=== PATIENT | female | born 1950 | race Caucasian/White ===

== ENCOUNTER → 2016-11-12 | Outpatient (CLI) | payer BC, MEDICARE ==
--- NOTE | 2016-11-12 16:42 | BD ---
EXAMINATION TYPE: MG DEXA axial skeleton. DATE OF EXAM: 11/12/2016 3:29 PM COMPARISON: NONE CLINICAL HISTORY: Height: 59.7 IN Weight: 196 LBS FRAX RISK QUESTIONS: Alcohol (3 or more units per day): NO Family History (Parent hip fracture): YES MOTHER Glucocorticoids (More than 3mos): NO (Ex: prednisone, prednisolone, methylprednisolone, dexamethasone, and hydrocortisone). History of Fracture in Adulthood: NO Secondary Osteoporosis: 1. Type 1 Diabetes: NO 2. Hyperthyroidism: NO 3. Menopause before 45: NO 4. Malnutrition: NO 5. Chronic liver disease: NO Rheumatoid Arthritis: NO Current Tobacco Use: NO RISK FACTORS HISTORY OF: Surgery to Spine): YES L-SPINE When: 1990 AND 1992 Active: YES Diet low in dairy products/other sources of calcium: YES Postmenopausal woman: AGE 51 MEDICATIONS: Additional Medications: OMEPRAZOLE, ANTIDEPRESSANT, FLEXERIL, EXAM MEASUREMENTS: Bone mineral densitometry was performed using the [employer] System. PT HAD 2 SURGERIES TO L-SPINE IN 1990 AND 1992 Bone mineral density about the R hip (g/cm2): 0.878 Bone mineral density about the L hip (g/cm2): 0.897 T Score values are as follows: -----R Neck: -1.2 -----L Neck: -1.0 -----R Intertrochanter: -0.4 -----L Intertrochanter: 0.3 Bone mineral density BASELINE IMPRESSION: Osteopenia (T Score between -2.5 and -1 as noted by T score values There is slightly increased risk of fracture and the patient may be considered for treatment. Re-Screen 1-2 years. NOTE: T-SCORE=SD OF THE YOUNG ADULT MEAN.
--- NOTE | 2016-11-13 08:39 | MM ---
Reason for exam: screening (asymptomatic). Baseline mammogram. History: Patient is postmenopausal and is nulliparous. Family history of breast cancer in mother at age 68. Physical Findings: Nurse did not find any significant physical abnormalities on exam. MG 3D Screening Mammo W/Cad Bilateral CC and MLO view(s) were taken. There are scattered fibroglandular densities. There is no discrete abnormality. There is no discrete abnormality. These results were verbally communicated with the patient and result sheet given to the patient on 11/12/16. ASSESSMENT: Benign, BI-RAD 2 RECOMMENDATION: Routine screening mammogram of both breasts in 1 year.
== END ==
LOC: RADMAMWWP 13:38
PROVIDERS: ATTEND Family Medicine
DX: Z12.31 Encounter for screening mammogram for malignant neoplasm of breast (principal); M85.80 Other specified disorders of bone density and structure, unspecified site; N95.1 Menopausal and female climacteric states; Z78.0 Asymptomatic menopausal state
CPT/HCPCS: 77080; 77063; G0202

== ENCOUNTER → 2017-04-15 | Outpatient (CLI) | payer MEDICARE ==
--- NOTE | 2017-04-15 14:30 | US ---
EXAMINATION TYPE: US kidneys/renal and bladder DATE OF EXAM: 04/15/2017 COMPARISON: NONE CLINICAL HISTORY: N18.3 Stage 3 chronic kidney disease. CKD EXAM MEASUREMENTS: Right Kidney: 8.4 x 4.6 x 3.9 cm Left Kidney: 10.9 x 4.6 x 3.6 cm Right Kidney: wnl Left Kidney: wnl Bladder: wnl Bilateral Jets seen: Yes There is no evidence for hydronephrosis at this point in time. No nephrolithiasis is seen. No rita s are identified on images saved. The urinary bladder is anechoic. Bilateral ureteral jets are seen . IMPRESSION: Asymmetric atrophy and cortical thinning of right kidney noted. No hydronephrosis is evident bilatera lly.
== END | disposition home or self-care (01) ==
LOC: RADUSWWP 12:21
PROVIDERS: ATTEND Family Medicine
DX: N18.3 Chronic kidney disease, stage 3 (moderate) (principal); N26.1 Atrophy of kidney (terminal)
CPT/HCPCS: 76770

== ENCOUNTER → 2017-11-16 | Outpatient (CLI) | payer MEDICARE ==
--- NOTE | 2017-11-18 09:07 | MM ---
Reason for exam: screening (asymptomatic). Last mammogram was performed 1 year ago. History: Patient is postmenopausal and is nulliparous. Family history of breast cancer in mother at age 68. Physical Findings: A clinical breast exam by your physician is recommended on an annual basis and results should be correlated with mammographic findings. MG 3D Screening Mammo W/Cad Bilateral CC and MLO view(s) were taken. Prior study comparison: November 12, 2016, bilateral MG 3d screening mammo w/cad. There are scattered fibroglandular densities. There is chronic nodularity bilaterally. No significant changes when compared with prior studies. ASSESSMENT: Negative, BI-RAD 1 RECOMMENDATION: Routine screening mammogram of both breasts in 1 year.
== END | disposition home or self-care (01) ==
LOC: RADMAMWWP 14:08
PROVIDERS: ATTEND Family Medicine
DX: Z12.31 Encounter for screening mammogram for malignant neoplasm of breast (principal); N95.1 Menopausal and female climacteric states; M89.9 Disorder of bone, unspecified; Z80.3 Family history of malignant neoplasm of breast
CPT/HCPCS: 77063; 77067

== ENCOUNTER 2018-10-10 23:51 | Observation (INO) | payer MEDICARE ==
[2018-10-11] MEDS ORDERED: HYDROmorphone 0.5 MG/0.5 ML SYRINGE IVP STA (00:45)
[2018-10-11] MEDS ORDERED: ONDANSETRON 4 MG/2 ML VIAL IVP STA (00:45)
[2018-10-11] MEDS ORDERED: SODIUM CHLORIDE 0.9% 500 ML 500 ML IV ONE (00:46)
[2018-10-11 01:00] LABS: Basophils % (A) 0 %; Eosinophils # (A) 0.1 k/uL (0-0.7); Eosinophils % (A) 1 %; HCT 43.8 % (34.0-46.0); HGB 13.3 gm/dL (11.4-16.0); Hypochromasia Marked; Lymphocytes # (A) 1.3 k/uL (1.0-4.8); Lymphocytes % (A) 9 %; MCH 25.3 pg (25.0-35.0); MCHC 30.4 g/dL (31.0-37.0); MCV 83.1 fL (80.0-100.0); Mean Platelet Volume 7.4; Monocytes # (A) 0.4 k/uL (0-1.0); Monocytes % (A) 2 %; Neutrophils # (A) 13.4 k/uL (1.3-7.7); Neutrophils % (A) 88 %; Platelet Count 351 k/uL (150-450); RBC 5.27 m/uL (3.80-5.40); RDW 14.9 % (11.5-15.5); WBC 15.2 k/uL (3.8-10.6)
[2018-10-11 01:10] LABS: Albumin 4.1 g/dL (3.5-5.0); Calcium 10.9 mg/dL (8.4-10.2); Potassium 4.4 mmol/L (3.5-5.1); Total Bilirubin 0.8 mg/dL (0.2-1.3); Total Protein 7.7 g/dL (6.3-8.2)
--- NOTE | 2018-10-11 02:18 | CT ---
EXAM: CT Chest With Intravenous Contrast CLINICAL HISTORY: ITS.REASON CT Reason: pain TECHNIQUE: Axial computed tomography images of the chest with intravenous contrast. CTDI is 20 mGy and DLP is 1078 mGy-cm. This CT exam was performed using one or more of the following dose reduction techniques: automated exposure control, adjustment of the mA and/or kV according to patient size, and/or use of iterative reconstruction technique. COMPARISON: No relevant prior studies available. FINDINGS: Lungs: No mass. No consolidation. Pleural space: No pneumothorax. No significant effusion. Heart: Normal heart size without pericardial effusion. Bones/joints: No acute fracture. Soft tissues: Unremarkable. Vasculature: Unremarkable. No thoracic aortic aneurysm. Lymph nodes: No enlarged lymph nodes. IMPRESSION: No acute intrathoracic findings. EXAM: CT Abdomen and Pelvis With Intravenous Contrast CLINICAL HISTORY: ITS.REASON CT Reason: pain TECHNIQUE: Axial computed tomography images of the abdomen and pelvis with intravenous contrast. CTDI is 20 mGy and DLP is 1078 mGy-cm. This CT exam was performed using one or more of the following dose reduction techniques: automated exposure control, adjustment of the mA and/or kV according to patient size, and/or use of iterative reconstruction technique. COMPARISON: No relevant prior studies available. FINDINGS: Lung bases: No mass. No consolidation. ABDOMEN: Liver: Unremarkable. Gallbladder and bile ducts: Unremarkable. Pancreas: Unremarkable. Spleen: Unremarkable. Adrenals: Unremarkable. Kidneys and ureters: No hydronephrosis. 5.4 cm left renal cyst. Stomach and bowel: Mildly thickened distal ileum. Colonic diverticulosis. Fluid-filled colon. PELVIS: Appendix: No evidence of appendicitis. Bladder: Unremarkable. Reproductive: Unremarkable. ABDOMEN and PELVIS: Intraperitoneal space: Trace fluid around the right lower quadrant. Bones/joints: No acute fractures. Degenerative changes. Soft tissues: Supraumbilical hernia containing a short segment of the transverse colon. Umbilical hernia and periumbilical hernia containing loops of small bowel. The right side measures up to 5.3 cm and the left sac measures up to 13 cm. Vasculature: No abdominal aortic aneurysm. Lymph nodes: No enlarged lymph nodes. IMPRESSION: 1. 3 abdominal hernias are seen containing transverse colon in the supraumbilical hernia and small bowel in the umbilical/periumbilical hernias which is large on the left. No evidence of bowel obstruction. 2. Mildly thickened distal ileum with trace free fluid and subtle stranding may represent infectious/inflammatory enteritis/ileitis. 3. Colonic diverticulosis.
[2018-10-11 02:36] LABS: Magnesium 1.8 mg/dL (1.6-2.3); Phosphorus 1.9 mg/dL (2.5-4.5)
[2018-10-11] MEDS ORDERED: SODIUM CHLORIDE 0.9% 1,000 ML IV STA (02:55)
--- NOTE | 2018-10-11 04:20 | ED ---
General Adult HPI - General Source: patient, EMS, RN notes reviewed, old records reviewed Mode of arrival: EMS Limitations: no limitations <Trino Conner - Last Filed: 10/11/18 05:27> <Cheryl Lam - Last Filed: 10/13/18 00:27> - General Chief complaint: Abdominal Pain Stated complaint: abd pain Time Seen by Provider: 10/11/18 00:56 - History of Present Illness Initial comments: 68-year-old female patient past medical history of bowel perforation after, multiple colorectal surgeries, ventral hernia presents to ED with 1 day of abdominal pain, nausea and vomiting. Patient states that her pain is located in her left lower quadrant region. Patient denies any other complaints. Patient denies any chest pain shortness of breath, dysuria. Systemic: Pt denies fatigue, myalgia, fever/chills, rash. Pt denies weakness, night sweats, weight loss. Neuro: Pt denies headache, visual disturbances, syncope or pre-syncope. HEENT: Pt denies ocular discharge or irritation, otalgia, rhinorrhea, pharyngitis or notable lymphadenopathy. Cardiopulmonary: Pt denies chest pain, SOB, heart palpitations, dyspnea on exertion. Abdominal/GI: Pt denies n/v/d. : Pt denies dysuria, burning w/ urination, frequency/urgency. Denies new onset urinary or bowel incontinence. MSK: Pt denies myalgia, loss of strength or function in extremities. Neuro: Pt denies new onset weakness, paresthesias. (Trino Conner) - Related Data Allergies Allergy/AdvReac Type Severity Reaction Status Date / Time morphine Allergy Unknown Verified 10/11/18 08:33 Review of Systems ROS Other: All systems not noted in ROS Statement are negative. <Trino Conner - Last Filed: 10/11/18 05:27> ROS Other: All systems not noted in ROS Statement are negative. <Cheryl Lam - Last Filed: 10/13/18 00:27> ROS Statement: Those systems with pertinent positive or pertinent negative responses have been documented in the HPI. Past Medical History Past Medical History: Renal Disease Additional Past Medical History / Comment(s): bowel perferation. History of Any Multi-Drug Resistant Organisms: None Reported Past Surgical History: Back Surgery, Cholecystectomy Past Psychological History: No Psychological Hx Reported Smoking Status: Former smoker Past Alcohol Use History: None Reported Past Drug Use History: None Reported <Trino Conner - Last Filed: 10/11/18 05:27> General Exam Limitations: no limitations <Trino Conner - Last Filed: 10/11/18 05:27> - General Exam Comments Initial Comments: Constitutional: NAD, AOX3, Pt has pleasant affect. HEENT: NC/AT, trachea midline, neck supple, no lymphadenopathy. Posterior pharynx non erythematous, without exudates. External ears appear normal, without discharge. Mucous membranes moist. Eyes PERRLA, EOM intact. There is no scleral icterus. No pallor noted. Cardiopulmonary: RRR, no murmurs, rubs or gallops, no JVD noted. Lungs CTAB in anterior and posterior farmer. No peripheral edema. Abdominal exam: Abdomen soft and non-distended. Abdomen non-tender to palpation in all 4 quadrants. Bowel sounds active in LLQ. No hepatosplenomegaly. No ecchymosis. 3 ventral hernias noted, all reducible, nontender. Neuro: CN II-XII grossly intact. No nuchal rigidity. MSK: No posterior calf tenderness bilaterally, homans sign negative bilaterally. Posterior tibialis and radial pulse +2 bilaterally. Sensation intact in upper and lower extremities. Full active ROM in upper and lower extremities, 5/5 stregnth. (Trino Conner) Course Vital Signs 10/11/18 10/11/18 10/11/18 00:00 01:15 03:12 Temperature 98.0 F 98.3 F Pulse Rate 65 90 70 Respiratory 22 18 16 Rate Blood Pressure 183/93 135/82 111/52 O2 Sat by Pulse 100 96 97 Oximetry 10/11/18 05:52 Temperature 98.2 F Pulse Rate 79 Respiratory 16 Rate Blood Pressure 122/65 O2 Sat by Pulse 98 Oximetry Medical Decision Making - Lab Data Result diagrams: 10/11/18 00:15 10/11/18 00:15 - EKG Data -: EKG Interpreted by Me (and Dr. Lam ) <Trino Conner - Last Filed: 10/11/18 05:27> - Lab Data Result diagrams: 10/11/18 00:15 10/11/18 00:15 <Cheryl Lam - Last Filed: 10/13/18 00:27> - Medical Decision Making 68-year-old female patient past medical history of bowel perforation after, multiple colorectal surgeries, ventral hernia presents to ED with 1 day of abdominal pain, nausea and vomiting. Patient states that her pain is located in her left lower quadrant region. Patient denies any other complaints. Patient denies any chest pain shortness of breath, dysuria. Patient vital signs stable, afebrile. Physical exam displayed: Abdomen soft and non-distended. Abdomen non- tender to palpation in all 4 quadrants. Bowel sounds active in LLQ. No hepatosplenomegaly. No ecchymosis. 3 ventral hernias noted, all reducible, nontender. Laboratory investigations revealed mild leukcytosis of 15.2. CMP noncompressive. Lactic acid elevated at 3.9. Patient instructed on fluids. Repeat lactic pending. CT chest abdomen pelvis displayed 3 abdominal hernias containing transverse colon in the supraumbilical hernia and small bowel in the umbilical site. Local hernia which is large on the left. No evidence of bowel obstruction. Mildly thickened distal ileum with trace free fluid and subtle stranding may represent infectious/inflammatory enteritis/ileitis. Colonic dive rticulosis. EKG neck concerning for acute ischemia. Patient will be admitted for observation and pain control. Case discussed with Dr. Lam. (Trino Conner) - Lab Data Lab Results 10/11/18 10/11/18 10/11/18 Range/Units 00:15 00:15 00:15 WBC 15.2 H (3.8-10.6) k/uL RBC 5.27 (3.80-5.40) m/uL Hgb 13.3 (11.4-16.0) gm/dL Hct 43.8 (34.0-46.0) % MCV 83.1 (80.0-100.0) fL MCH 25.3 (25.0-35.0) pg MCHC 30.4 L (31.0-37.0) g/dL RDW 14.9 (11.5-15.5) % Plt Count 351 (150-450) k/uL Neutrophils % 88 % Lymphocytes % 9 % Monocytes % 2 % Eosinophils % 1 % Basophils % 0 % Neutrophils # 13.4 H (1.3-7.7) k/uL Lymphocytes # 1.3 (1.0-4.8) k/uL Monocytes # 0.4 (0-1.0) k/uL Eosinophils # 0.1 (0-0.7) k/uL Basophils # 0.0 (0-0.2) k/uL Hypochromasia Marked Sodium 140 (137-145) mmol/L Potassium 4.4 (3.5-5.1) mmol/L Chloride 107 (98-107) mmol/L Carbon Dioxide 21 L (22-30) mmol/L Anion Gap 12 mmol/L BUN 14 (7-17) mg/dL Creatinine 1.38 H (0.52-1.04) mg/dL Est GFR (CKD-EPI)AfAm 45 (>60 ml/min/1.73 sqM) Est GFR (CKD-EPI)NonAf 39 (>60 ml/min/1.73 sqM) Glucose 166 H (74-99) mg/dL Lactic Ac Sepsis Rflx Plasma Lactic Acid Ramiro (0.7-2.0) mmol/L Calcium 10.9 H (8.4-10.2) mg/dL Phosphorus (2.5-4.5) mg/dL Magnesium (1.6-2.3) mg/dL Total Bilirubin 0.8 (0.2-1.3) mg/dL AST 26 (14-36) U/L ALT 31 (9-52) U/L Alkaline Phosphatase 172 H (38-126) U/L Troponin I <0.012 (0.000-0.034) ng/mL Total Protein 7.7 (6.3-8.2) g/dL Albumin 4.1 (3.5-5.0) g/dL Amylase 65 (30-110) U/L Lipase 59 (23-300) U/L 10/11/18 10/11/18 10/11/18 Range/Units 00:15 00:15 02:42 WBC (3.8-10.6) k/uL RBC (3.80-5.40) m/uL Hgb (11.4-16.0) gm/dL Hct (34.0-46.0) % MCV (80.0-100.0) fL MCH (25.0-35.0) pg MCHC (31.0-37.0) g/dL RDW (11.5-15.5) % Plt Count (150-450) k/uL Neutrophils % % Lymphocytes % % Monocytes % % Eosinophils % % Basophils % % Neutrophils # (1.3-7.7) k/uL Lymphocytes # (1.0-4.8) k/uL Monocytes # (0-1.0) k/uL Eosinophils # (0-0.7) k/uL Basophils # (0-0.2) k/uL Hypochromasia Sodium (137-145) mmol/L Potassium (3.5-5.1) mmol/L Chloride (98-107) mmol/L Carbon Dioxide (22-30) mmol/L Anion Gap mmol/L BUN (7-17) mg/dL Creatinine (0.52-1.04) mg/dL Est GFR (CKD-EPI)AfAm (>60 ml/min/1.73 sqM) Est GFR (CKD-EPI)NonAf (>60 ml/min/1.73 sqM) Glucose (74-99) mg/dL Lactic Ac Sepsis Rflx Y Plasma Lactic Acid Ramiro 3.9 H* (0.7-2.0) mmol/L Calcium (8.4-10.2) mg/dL Phosphorus 1.9 L (2.5-4.5) mg/dL Magnesium 1.8 (1.6-2.3) mg/dL Total Bilirubin (0.2-1.3) mg/dL AST (14-36) U/L ALT (9-52) U/L Alkaline Phosphatase (38-126) U/L Troponin I (0.000-0.034) ng/mL Total Protein (6.3-8.2) g/dL Albumin (3.5-5.0) g/dL Amylase (30-110) U/L Lipase (23-300) U/L - EKG Data EKG Comments: Ventricular rate 71, ND interval 146, QRS 90, QT/QTc 434/471. Normal sinus rhythm, normal EKG. (Trino Conner) Disposition Is patient prescribed a controlled substance at d/c from ED?: No <Trino Conner - Last Filed: 10/11/18 05:27> <Cheryl Lam - Last Filed: 10/13/18 00:27> Clinical Impression: Abdominal hernia, Abdominal pain Disposition: ADMITTED IP TO THIS HOSP Condition: Good
[2018-10-11] MEDS ORDERED: ONDANSETRON 4 MG/2 ML VIAL IVP PRN (04:22)
[2018-10-11] MEDS ORDERED: NALOXONE 0.4 MG/ML 1 ML VIAL IV PRN (04:22)
[2018-10-11] MEDS ORDERED: HYDROmorphone 0.5 MG/0.5 ML SYRINGE IVP PRN (04:22)
[2018-10-11] MEDS: SODIUM CHLORIDE 0.9% 1,000 ML IV SCH ×2 (05:52→22:25)
[2018-10-11 08:12] VITALS: BMI 36.5
[2018-10-11] MEDS ORDERED: ACETAMINOPHEN TAB 325 MG TAB PO PRN (10:57)
[2018-10-11] MEDS: PANTOPRAZOLE 40 MG/10 ML VIAL IVP SCH (11:02)
--- NOTE | 2018-10-11 13:42 | P.HPIM ---
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 Patient was seen by general surgeon at [facility] for ROM 2 years and has not been seen for the last 3 years. 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 Patient presented to [facility] department with a one-day severe abdominal pain nausea and vomiting her pain was very severe left lower quadrant and mid lower abdominal region area with slight distended abdomen and no bowel movement for over 24 hours was seen and evaluated by the emergency physician giving Dilaudid and end up going for CT of the abdomen and pelvis which came with 3 abdominal hernia are seen containing transverse colon in the supraumbilical hernia and small bowel in the umbilical and periumbilical hernias which is large on the left no evidence of bowel obstruction at the time but there is mild thickening o f the distal ileum and trace of fluid consistent with seen with enteritis or colitis with colonic diverticulitis as well. With the severity of her symptoms after starting IV fluid and pain management her pain has improved significantly was admitted shortly will be evaluated by general surgeon and see if there is a need to go for any urgent surgery at this time. Review of Systems CONSTITUTIONAL: Well-developed no acute respiratory distress. EYES: No icterus sclerae, no conjunctivitis. EARS, NOSE, MOUTH, THROAT, and FACE: No sore throat, lymphadenopathy, carotid bruits or deformity. RESPIRATORY: No SOB cough or wheezes. CARDIOVASCULAR: No CP, Palpitation, PND, Orthopnea, or angina. GASTROINTESTINAL: Significant abdominal discomfort with nausea constipation and vomiting with questionable of obstruction. GENITOURINARY: Negative for Hematuria or UTI, no kidney stones. INTEGUMENT/BREAST: Negative for any muscular injury with mild osteoarthritis.. HEMATOLOGIC/LYMPHATIC: Mild leukocytosis and anemia. MUSCULOSKELTAL: Negative for Myalgia or arthralgia. NEURLOGICAL: No LOC, Sz or syncope, blurred vision dizziness or abnormality.. BEHAVIORAL/PSYCH: Negative. ENDOCRINE: Negative. Past Medical History Past Medical History: Renal Disease Additional Past Medical History / Comment(s): bowel perferation. History of Any Multi-Drug Resistant Organisms: None Reported Past Surgical History: Back Surgery, Cholecystectomy Past Psychological History: No Psychological Hx Reported Smoking Status: Former smoker Past Alcohol Use History: None Reported Past Drug Use History: None Reported Medications and Allergies Home Medications Medication Instructions Recorded Confirmed Type Cholecalciferol (Vitamin D3) 2,000 unit PO DAILY 10/11/18 10/11/18 History [Vitamin D3] Cyanocobalamin (Vitamin B-12) 1,000 mcg PO DAILY 10/11/18 10/11/18 History [Vitamin B-12] Cyclobenzaprine [Flexeril] 10 mg PO TID PRN 10/11/18 10/11/18 History Escitalopram [Lexapro] 20 mg PO DAILY 10/11/18 10/11/18 History Lansoprazole [Prevacid] 15 mg PO DAILY 10/11/18 10/11/18 History Allergies Allergy/AdvReac Type Severity Reaction Status Date / Time morphine Allergy Unknown Verified 10/11/18 08:33 Physical Exam Vitals: Vital Signs Temp Pulse Pulse Resp BP BP Pulse Ox 10/11/18 07:00 16 10/11/18 06:30 97.8 F 80 16 152/73 95 10/11/18 05:52 98.2 F 79 16 122/65 98 10/11/18 03:12 98.3 F 70 16 111/52 97 10/11/18 01:15 90 18 135/82 96 10/11/18 00:00 98.0 F 65 22 183/93 100 Intake and Output 10/10/18 10/11/18 10/11/18 22:59 06:59 14:59 Other: # Voids 1 Weight 84.8 kg General Appearance: Alert, cooperative, no distress, appears stated age. Neck HEENT: Supple, no lymphadenopathy, no thyroid enlargement, no carotid bruits. Lungs: Clear to auscultation without crackles or wheezes no rhonchi, no deformity. Chest Wall: Chest wall normal expansion with deep inspiration no tenderness and no deformity was found on exam, no costochondral pain or discomfort. Heart: Regular rate and rhythm, S1, S2 normal, no murmur, rub or gallop. Back: Mild scoliosis with L-spine discomfort no rebound rigidity or tenderness. Abdomen: Soft slightly distended with scar tissue in the right upper quadrant and mid lower back region area with 3 hernia the largest one in the lower left side smaller in the left upper and mild sized hernia on the right side as well Extremities: Extremities normal, atraumatic, no cyanosis or edema. Pulses: 2+ and symmetric. Skin: Skin color, texture, tugor normal, no rashes or lesions. Neurologic: Alert oriented x3 cranial nerves II through XII intact, no motor deficit, no abnormal balance or gait. Results CBC & Chem 7: 10/11/18 00:15 10/11/18 00:15 Labs: Abnormal Lab Results - Last 24 Hours (Table) 10/11/18 10/11/18 10/11/18 Range/Units 00:15 00:15 00:15 WBC 15.2 H (3.8-10.6) k/uL MCHC 30.4 L (31.0-37.0) g/dL Neutrophils # 13.4 H (1.3-7.7) k/uL Carbon Dioxide 21 L (22-30) mmol/L Creatinine 1.38 H (0.52-1.04) mg/dL Glucose 166 H (74-99) mg/dL Plasma Lactic Acid Ramiro (0.7-2.0) mmol/L Calcium 10.9 H (8.4-10.2) mg/dL Phosphorus 1.9 L (2.5-4.5) mg/dL Alkaline Phosphatase 172 H (38-126) U/L 10/11/18 Range/Units 00:15 WBC (3.8-10.6) k/uL MCHC (31.0-37.0) g/dL Neutrophils # (1.3-7.7) k/uL Carbon Dioxide (22-30) mmol/L Creatinine (0.52-1.04) mg/dL Glucose (74-99) mg/dL Plasma Lactic Acid Ramiro 3.9 H* (0.7-2.0) mmol/L Calcium (8.4-10.2) mg/dL Phosphorus (2.5-4.5) mg/dL Alkaline Phosphatase (38-126) U/L Thrombosis Risk Factor Assmnt - DVT/VTE Prophylaxis DVT/VTE Prophylaxis: Pharmacologic Prophylaxis ordered, Mechanical Prophylaxis ordered - Choose All That Apply Any of the Below Risk Factors Present?: Yes Each Risk Factor Represents 2 Points: Age 61-74 years Each Risk Factor Represents 3 Points: History of DVT/PE Thrombosis Risk Factor Assessment Total Risk Factor Score: 5 Thrombosis Risk Factor Assessment Level: High Risk Assessment and Plan Assessment: 1 severe acute abdominal pain combination of hernia along with bowel obstruction with large ventral hernia and possible incarceration as an inside hernia patient will be evaluated by general surgery for possible need for urgent surgery to do correction. 2 possible partial obstruction: Has been resolved after pain was managed and patient had lay down continue to monitor patient closely evaluated by general surgeon. 3 possible incarceration: Specially the left lower quadrant large ventral hernia. 4 mild leukocytosis: Could be from the severity of the pain from the hernia with exclude any possibility for other infection such as UTI or pulmonary. 5 mild lactic acidosis: Most likely from the severity of the hernia and obstruction continue fluid resuscitation repeat lactic acid after admission. 6 mild hypercalcemia: Not a clear etiology could be primary or secondary hyperparathyroidism repeat chemistry and repeat PTH with the blood work in 24 hours. 7 hyperglycemia: Continue patient on Accu-Chek with sliding scales coverage. 8 acute kidney injury: Stage to continue hydration and reevaluate BUN/creatinine 24 hours. 9 chronic lower back pain: Has been stable continue muscle relaxer and one of the Tylenol directive product. 10 GI prophylaxis: Patient did say on pantoprazole. 11 DVT prophylaxis: Patient will be on Lovenox subcutaneous. CODE STATUS: Full code. Admit patient to inpatient status for more than 2 nights.
[2018-10-11 14:21] LABS: Appearance,Urine Clear (Clear); Bilirubin,Urine Negative (Negative); Blood,Urine Negative (Negative); Color,Urine Yellow; Glucose,Urine (UA) Negative (Negative); Ketones,Urine Negative (Negative); Leukocyte Esterase,Urine Negative (Negative); Nitrite,Urine Negative (Negative); Protein,Urine Trace (Negative); Specific Gravity,Urine 1.037 (1.001-1.035); Urobilinogen,Urine <2.0 mg/dL (<2.0)
--- NOTE | 2018-10-11 16:34 | P.GSCN ---
History of Present Illness Consult date: 10/11/18 History of present illness: This is a 68-year-old female who presented with a chief complaint of abdominal pain. She has a complex past surgical history including partial colectomy for a perforated colon during a colonoscopy several years ago at [facility]. She had a colostomy at that time and has since had a reverse. She now has complex multiple large abdominal wall hernias. Yesterday she began experiencing abdominal pain and she had some nausea. She has had normal bowel movements. No diarrhea. She denies any blood in her stool. She denies any blood in her vomit. Overnight and today she states the pain is completely resolved her abdomen is soft she states it's not tender and she's not having any nausea or vomiting. Past Medical History Past Medical History: Renal Disease Additional Past Medical History / Comment(s): bowel perferation. History of Any Multi-Drug Resistant Organisms: None Reported Past Surgical History: Back Surgery, Cholecystectomy Past Psychological History: No Psychological Hx Reported Smoking Status: Former smoker Past Alcohol Use History: None Reported Past Drug Use History: None Reported Medications and Allergies Home Medications Medication Instructions Recorded Confirmed Type Cholecalciferol (Vitamin D3) 2,000 unit PO DAILY 10/11/18 10/11/18 History [Vitamin D3] Cyanocobalamin (Vitamin B-12) 1,000 mcg PO DAILY 10/11/18 10/11/18 History [Vitamin B-12] Cyclobenzaprine [Flexeril] 10 mg PO TID PRN 10/11/18 10/11/18 History Escitalopram [Lexapro] 20 mg PO DAILY 10/11/18 10/11/18 History Lansoprazole [Prevacid] 15 mg PO DAILY 10/11/18 10/11/18 History Allergies Allergy/AdvReac Type Severity Reaction Status Date / Time morphine Allergy Unknown Verified 10/11/18 08:33 Surgical - Exam Osteopathic Statement: *. No significant issues noted on an osteopathic structural exam other than those noted in the History and Physical/Consult. Vital Signs Temp Pulse Resp BP Pulse Ox 98.0 F 65 22 183/93 100 10/11/18 00:00 10/11/18 00:00 10/11/18 00:00 10/11/18 00:00 10/11/18 00:00 - General well developed, well nourished, no distress - Neck trachea midline - Respiratory normal expansion, normal respiratory effort - Cardiovascular Rhythm: regular - Abdomen There are multiple easily reducible soft large ventral hernias Abdomen: soft, non tender - Psychiatric oriented to time, oriented to person, oriented to place Results - Labs 10/11/18 00:15 10/11/18 00:15 Abnormal Lab Results - Last 24 Hours (Table) 10/11/18 10/11/18 10/11/18 Range/Units 00:15 00:15 00:15 WBC 15.2 H (3.8-10.6) k/uL MCHC 30.4 L (31.0-37.0) g/dL Neutrophils # 13.4 H (1.3-7.7) k/uL Carbon Dioxide 21 L (22-30) mmol/L Creatinine 1.38 H (0.52-1.04) mg/dL Glucose 166 H (74-99) mg/dL Plasma Lactic Acid Ramiro (0.7-2.0) mmol/L Calcium 10.9 H (8.4-10.2) mg/dL Phosphorus 1.9 L (2.5-4.5) mg/dL Alkaline Phosphatase 172 H (38-126) U/L Ur Specific [place] (1.001-1.035) Urine Protein (Negative) 10/11/18 10/11/18 Range/Units 00:15 13:45 WBC (3.8-10.6) k/uL MCHC (31.0-37.0) g/dL Neutrophils # (1.3-7.7) k/uL Carbon Dioxide (22-30) mmol/L Creatinine (0.52-1.04) mg/dL Glucose (74-99) mg/dL Plasma Lactic Acid Ramiro 3.9 H* (0.7-2.0) mmol/L Calcium (8.4-10.2) mg/dL Phosphorus (2.5-4.5) mg/dL Alkaline Phosphatase (38-126) U/L Ur Specific [place] 1.037 H (1.001-1.035) Urine Protein Trace H (Negative) Diabetes panel 10/11/18 Range/Units 00:15 Sodium 140 (137-145) mmol/L Potassium 4.4 (3.5-5.1) mmol/L Chloride 107 (98-107) mmol/L Carbon Dioxide 21 L (22-30) mmol/L BUN 14 (7-17) mg/dL Creatinine 1.38 H (0.52-1.04) mg/dL Glucose 166 H (74-99) mg/dL Calcium 10.9 H (8.4-10.2) mg/dL AST 26 (14-36) U/L ALT 31 (9-52) U/L Alkaline Phosphatase 172 H (38-126) U/L Total Protein 7.7 (6.3-8.2) g/dL Albumin 4.1 (3.5-5.0) g/dL Calcium panel 10/11/18 10/11/18 Range/Units 00:15 00:15 Calcium 10.9 H (8.4-10.2) mg/dL Phosphorus 1.9 L (2.5-4.5) mg/dL Albumin 4.1 (3.5-5.0) g/dL Pituitary panel 10/11/18 Range/Units 00:15 Sodium 140 (137-145) mmol/L Potassium 4.4 (3.5-5.1) mmol/L Chloride 107 (98-107) mmol/L Carbon Dioxide 21 L (22-30) mmol/L BUN 14 (7-17) mg/dL Creatinine 1.38 H (0.52-1.04) mg/dL Glucose 166 H (74-99) mg/dL Calcium 10.9 H (8.4-10.2) mg/dL Adrenal panel 10/11/18 Range/Units 00:15 Sodium 140 (137-145) mmol/L Potassium 4.4 (3.5-5.1) mmol/L Chloride 107 (98-107) mmol/L Carbon Dioxide 21 L (22-30) mmol/L BUN 14 (7-17) mg/dL Creatinine 1.38 H (0.52-1.04) mg/dL Glucose 166 H (74-99) mg/dL Calcium 10.9 H (8.4-10.2) mg/dL Total Bilirubin 0.8 (0.2-1.3) mg/dL AST 26 (14-36) U/L ALT 31 (9-52) U/L Alkaline Phosphatase 172 H (38-126) U/L Total Protein 7.7 (6.3-8.2) g/dL Albumin 4.1 (3.5-5.0) g/dL - Imaging CT scan - abdomen: report reviewed, image reviewed CT scan - pelvis: report reviewed, image reviewed Assessment and Plan Assessment: Complex abdominal wall hernias reducible Plan: Patient's pain is resolved today. Her hernias are now reducible. Given the size and complexity of her ventral wall hernias I recommended to her for follow-up a tertiary care facility with a surgeon that deals with complex ventral wall hernias. She does not need surgical intervention at this time. She have a diet as tolerated once she is tolerating a diet and her pain remains resolved she is clear for discharge from a surgical standpoint.
[2018-10-11] MEDS ORDERED: CYCLOBENZAPRINE 10 MG TAB PO PRN (19:50)
[2018-10-12] MEDS: PANTOPRAZOLE 40 MG/10 ML VIAL IVP SCH (06:58)
[2018-10-12] MEDS ORDERED: ESCITALOPRAM 20 MG TAB PO SCH (09:00)
[2018-10-12 09:17] VITALS: BP 143/75; PULSE 64; RESP 12; TEMP 98.5
--- NOTE | 2018-10-12 15:44 | P.DS ---
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 Patient was seen by general surgeon at [facility] for ROM 2 years and has not been seen for the last 3 years. 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 Patient presented to demurs department with a one-day severe abdominal pain nausea and vomiting her pain was very severe left lower quadrant and mid lower abdominal region area with slight distended abdomen and no bowel movement for over 24 hours was seen and evaluated by the emergency physician giving Dilaudid and end up going for CT of the abdomen and pelvis which came with 3 abdominal hernia are seen containing transverse colon in the supraumbilical hernia and small bowel in the umbilical and periumbilical hernias which is large on the left no evidence of bowel obstruction at the time but there is mild thickening of the distal ileum and trace of fluid consistent with seen with enteritis or colitis with colonic diverticulitis as well. With the severity of her symptoms after starting IV fluid and pain management her pain has improved significantly was admitted shortly will be evaluated by general surgeon and see if there is a need to go for any urgent surgery at this time. 10/12: Patient has been afebrile, heart rate in the 60s, blood pressure 143/75, pulse ox 98% on room air. Urinalysis negative for infection. Patient has been seen by Dr. pettit abdominal pain has resolved. Hernias are reducible. Recommendations are for follow-up at a tertiary care center due to the size and complexity of her ventral wall hernias. She does not require any surgical intervention at this time. She is currently tolerating a regular diet. Patient was cleared for discharge from general surgery and will be discharged home today in stable condition. Discharge diagnoses: 1 severe acute abdominal pain secondary to complex abdominal wall hernias, reducible. 2 possible partial obstruction: Has been resolved 3 possible incarceration but reducible 4 mild leukocytosis 5 mild lactic acidosis: Most likely from the severity of the hernia and obstruction 6 mild hypercalcemia: Not a clear etiology 7 hyperglycemia 8 acute kidney injury or possible chronic kidney disease stage III 9 chronic lower back pain Discharge plan: Home Impression and plan of care have been directed as dictated by the signing physician. Yaquelin Elias nurse practitioner acting as scribe for signing physician. Patient Condition at Discharge: Good Plan - Discharge Summary Discharge Rx Participant: Yes New Discharge Prescriptions: Continue Lansoprazole [Prevacid] 15 mg PO DAILY Cyclobenzaprine [Flexeril] 10 mg PO TID PRN PRN Reason: Muscle Spasm Cyanocobalamin (Vitamin B-12) [Vitamin B-12] 1,000 mcg PO DAILY Escitalopram [Lexapro] 20 mg PO DAILY Cholecalciferol (Vitamin D3) [Vitamin D3] 2,000 unit PO DAILY Discharge Medication List Cholecalciferol (Vitamin D3) [Vitamin D3] 2,000 unit PO DAILY 10/11/18 [History] Cyanocobalamin (Vitamin B-12) [Vitamin B-12] 1,000 mcg PO DAILY 10/11/18 [History] Cyclobenzaprine [Flexeril] 10 mg PO TID PRN 10/11/18 [History] Escitalopram [Lexapro] 20 mg PO DAILY 10/11/18 [History] Lansoprazole [Prevacid] 15 mg PO DAILY 10/11/18 [History] Follow up Appointment(s)/Referral(s): Cathy Melara MD [Primary Care Provider] - 10/19/18 2:15 pm Patient Instructions/Handouts: Umbilical Hernia (DC) Discharge Disposition: HOME SELF-CARE
== END 2018-10-12 13:00 | disposition home or self-care (01) ==
LOC: EC 23:51 → 4SSUR 10-11 05:22
PROVIDERS: ADMIT Internal Medicine Geriatric Medicine; ATTEND Internal Medicine Geriatric Medicine
DX: K43.9 Ventral hernia without obstruction or gangrene (principal); D72.829 Elevated white blood cell count, unspecified; E87.2 Acidosis; E83.52 Hypercalcemia; R73.9 Hyperglycemia, unspecified; N17.9 Acute kidney failure, unspecified; G89.29 Other chronic pain; M54.5 Low back pain; R11.2 Nausea with vomiting, unspecified; Z90.49 Acquired absence of other specified parts of digestive tract; Z87.891 Personal history of nicotine dependence; Z86.718 Personal history of other venous thrombosis and embolism; Z87.19 Personal history of other diseases of the digestive system; Z79.899 Other long term (current) drug therapy; Z88.5 Allergy status to narcotic agent
CPT/HCPCS: 96376; 96375 ×2; 96361; 96374; 99285; 36415; 80053; 82150; 83605; 83690; 83735; 84100; 84484; 85025; 81003; 71260; 74177; G0378 ×2; J2405; C9113 ×2; J1170; Q9967

== ENCOUNTER → 2019-06-29 | Outpatient (CLI) | payer MEDICARE ==
--- NOTE | 2019-06-29 14:26 | MM ---
Reason for exam: clinical finding. Last mammogram was performed 1 year and 7 months ago. History: Patient is postmenopausal and is nulliparous. Family history of breast cancer in mother at age 68. Indicated problem(s): lump or thickening in the right breast. Physical Findings: Nurse Summary: 1cm nodule in the right breast at 12 and 2 o'clock (nurse mj). MG 3D Diag Mammo W/Cad FREDDY Bilateral CC and MLO view(s) were taken. Prior study comparison: November 16, 2017, bilateral MG 3d screening mammo w/cad. November 12, 2016, bilateral MG 3d screening mammo w/cad. There are scattered fibroglandular densities. Benign appearing calcifications in the left breast. No suspicious abnormality in the left breast. Central inner 10cm new focal asymmetry on the right in the area of improving pain after possible trauma. These results were verbally communicated with the patient and result sheet given to the patient on 06/29/19. ASSESSMENT: Incomplete: need additional imaging evaluation, BI-RAD 0 RECOMMENDATION: Ultrasound of the right breast.
--- NOTE | 2019-06-29 14:29 | USB ---
Reason for exam: additional evaluation requested from abnormal screening. History: Patient is postmenopausal and is nulliparous. Family history of breast cancer in mother at age 68. US Breast RT Right complete breast ultrasound includes all four quadrants, the retroareolar region and axilla. Finding demonstrates ductal ectasia at 1 o'clock BB, a 0.4 x 0.4 x 0.3cm oval, complex, cystic lesion at 2 o'clock BB, a 0.6 x 0.5 x 0.4cm oval, cluster, complex, cystic lesion at 2 o'clock, a 0.3 x 0.3 x 0.2cm oval, complex, cystic lesion at 5 o'clock, a 0.4 x 0.4 x 0.3cm oval, complex, cystic lesion at 6 o'clock, a 0.8 x 0.7 x 0.6cm oval, lobular, complex, cystic lesion at 7 o'clock, a 0.5 x 0.6 x 0.4cm complex, cystic lesion at 8 o'clock, a 0.7 x 0.4 x 0.3cm complex, cystic lesion at 9 o'clock and a 0.5 x 0.4 x 0.2cm complex, cystic, vascular lesion at 9 o'clock. All likely complicated cysts. These results were verbally communicated with the patient and result sheet given to the patient on 06/29/19. ASSESSMENT: Probably benign, BI-RAD 3 RECOMMENDATION: Follow-up diagnostic mammogram and ultrasound of the right breast in 6 months.
== END | disposition home or self-care (01) ==
LOC: RADMAMWWP 09:30
PROVIDERS: ATTEND Family Medicine
DX: N63.0 Unspecified lump in unspecified breast (principal)
CPT/HCPCS: 77066; 76641; G0279; 77062

== ENCOUNTER → 2020-07-31 | Outpatient (CLI) | payer MEDICARE ==
--- NOTE | 2020-07-31 10:09 | MM ---
Reason for exam: additional evaluation requested from prior study. Last mammogram was performed 1 year and 1 month ago. History: Patient is postmenopausal and is nulliparous. Family history of breast cancer in mother at age 68. Physical Findings: Nurse did not find any significant physical abnormalities on exam. MG 3D Diag Mammo W/Cad FREDDY Bilateral CC and MLO view(s) were taken. Prior study comparison: June 29, 2019, bilateral MG 3d diag mammo w/cad FREDDY. November 16, 2017, bilateral MG 3d screening mammo w/cad. There are scattered fibroglandular densities. There is chronic nodularity bilaterally. New 4mm isodense circumscribed nodule 4 o'clock anterior right breast. Suspect a fluctuating cyst. 6 month follow up recommended. These results were verbally communicated with the patient and result sheet given to the patient on 07/31/20. ASSESSMENT: Probably benign, BI-RAD 3 RECOMMENDATION: Follow-up diagnostic mammogram of the right breast in 6 months.
--- NOTE | 2020-07-31 19:14 | BD ---
EXAMINATION TYPE: Axial Bone Density DATE OF EXAM: 07/31/2020 COMPARISON: 11/12/2016 CLINICAL HISTORY: Postmenopausal screening Height: 5 FT Weight: 189 FRAX RISK QUESTIONS: Alcohol (3 or more units per day): NO Family History (Parent hip fracture): YES Glucocorticoids (More than 3mos): NO (Ex: prednisone, prednisolone, methylprednisolone, dexamethasone, and hydrocortisone). History of Fracture in Adulthood: NO Secondary Osteoporosis: 1. Type 1 Diabetes: NO 2. Hyperthyroidism: NO 3. Menopause before 45: NO 4. Malnutrition: NO 5. Chronic liver disease: NO Rheumatoid Arthritis: NO Current Tobacco Use: NO RISK FACTORS HISTORY OF: Surgery to Spine/Hip(right/left)/Wrist (right/left): LUMBAR SPINE When: 1990 AND 1992 Family History of Osteoporosis: NO Active: NO Diet low in dairy products/other sources of calcium: NO Postmenopausal woman: AGE 51 Take estrogen and/or progesterone medications: NONE Lost more than 2 inches in height since high school: NO MEDICATIONS: Additional Medications: LASIX, FLEXERIL, LEXAPRO, LANSOPRAZOLE Additional History: EXAM MEASUREMENTS: Bone mineral density about the R hip (g/cm2): 0.845 Bone mineral density about the L hip (g/cm2): 0.873 T Score values are as follows: -----R Neck: -1.4 -----L Neck: -1.2 -----R Total: -0.7 -----L Total: -0.4 Bone mineral density has: DECREASED -5.7 % since study of: 2016 Bone mineral density about the L Wrist (g/cm2): 0.581 T Score values are as follows: -----Dist. R+U: -1.8 -----Prox. R+U: -0.7 -----Radius total: -1.5 FIRST TIME WRIST HAS BEEN DONE. IMPRESSION: Osteopenia (T Score between -2.5 and -1). There is slightly increased risk of fracture and the patient may be considered for treatment. Re-Screen 2-5 years. NOTE: T-SCORE=SD OF THE YOUNG ADULT MEAN.
== END | disposition home or self-care (01) ==
LOC: RADBDWWP 09:17
PROVIDERS: ATTEND Family Medicine
DX: R92.8 Other abnormal and inconclusive findings on diagnostic imaging of breast (principal); M85.80 Other specified disorders of bone density and structure, unspecified site; Z78.0 Asymptomatic menopausal state
CPT/HCPCS: 77080; 77066; G0279; 77062

== ENCOUNTER → 2021-02-27 | Outpatient (CLI) | payer MEDICARE ==
--- NOTE | 2021-02-28 09:50 | MM ---
Reason for exam: follow-up at short interval from prior study. Last mammogram was performed 7 months ago. History: Patient is postmenopausal and is nulliparous. Family history of breast cancer in mother at age 68. Physical Findings: Nurse did not find any significant physical abnormalities on exam. MG 3D Diag Mammo W/Cad RT CC and MLO view(s) were taken of the right breast. Prior study comparison: July 31, 2020, bilateral MG 3d diag mammo w/cad FREDDY. There are scattered fibroglandular densities. Finding: There is a small typically benign stable equal density (isodense), circumscribed oval mass in the lower inner quadrant, anterior position of the right breast. No significant changes in finding since July 31, 2020. These results were verbally communicated with the patient and result sheet given to the patient on 02/27/21. ASSESSMENT: Benign, BI-RAD 2 RECOMMENDATION: Routine screening mammogram of both breasts in 6 months. Back on schedule.
== END | disposition home or self-care (01) ==
LOC: RADMAMWWP 14:05
PROVIDERS: ATTEND Family Medicine
DX: N64.89 Other specified disorders of breast (principal); N63.14 Unspecified lump in the right breast, lower inner quadrant; Z78.0 Asymptomatic menopausal state
CPT/HCPCS: 77065; G0279; 77061

== ENCOUNTER → 2022-03-06 | Outpatient (CLI) | payer MEDICARE ==
--- NOTE | 2022-03-07 07:48 | MM ---
Reason for Exam: Screening (asymptomatic). Last mammogram was performed 1 year(s) and 7 month(s) ago. Patient History: Menarche at age 11. Patient has no children. Postmenopausal. Mother had breast cancer, age 68. Risk Values: Nely 5 year model risk: 3.5%. NCI Lifetime model risk: 8.4%. Prior Study Comparison: 11/16/2017 Bilateral Screening Mammogram, [facility]. 06/29/2019 Bilateral Diagnostic Mammogram, [facility]. 07/31/2020 Bilateral Diagnostic Mammogram, [facility]. 02/27/2021 Right Diagnostic Mammogram, [facility]. Tissue Density: There are scattered fibroglandular densities. Findings: Analyzed By CAD. There is no suspicious group of microcalcifications or new suspicious mass in either breast. Overall Assessment: Benign, BI-RAD 2 Management: Screening Mammogram of both breasts in 1 year. A clinical breast exam by your physician is recommended on an annual basis and results should be correlated with mammographic findings. Electronically signed and approved by: Baldev Morse M.D. Radiologis
== END | disposition home or self-care (01) ==
LOC: RADMAMWWP 12:10
PROVIDERS: ATTEND Family Medicine
DX: Z12.31 Encounter for screening mammogram for malignant neoplasm of breast (principal); Z78.0 Asymptomatic menopausal state; Z80.3 Family history of malignant neoplasm of breast
CPT/HCPCS: 77063; 77067

== ENCOUNTER → 2023-07-27 | Outpatient (CLI) | payer MEDICARE ==
--- NOTE | 2023-07-27 12:25 | XR ---
EXAMINATION TYPE: XR ribs RT DATE OF EXAM: 07/27/2023 COMPARISON: None HISTORY: Fall, pain TECHNIQUE: 2 view right ribs FINDINGS: There is a slight step-off of the posterior lateral right fifth rib. No pneumothorax is taty dent. Remaining ribs appear intact. IMPRESSION: 1. Right posterior lateral fifth rib fracture
== END | disposition home or self-care (01) ==
LOC: RADXRMAIN 11:18
PROVIDERS: ATTEND Family Medicine
DX: S22.31XA Fracture of one rib, right side, initial encounter for closed fracture (principal); S23.41XD Sprain of ribs, subsequent encounter

== ENCOUNTER → 2024-07-27 | Outpatient (CLI) | payer MEDICARE ==
--- NOTE | 2024-07-29 10:50 | MM ---
Reason for Exam: Screening (asymptomatic). Last mammogram was performed 1 year(s) and 4 month(s) ago. Patient History: Menarche at age 11. Patient has no children. Postmenopausal. Mother had breast cancer, age 68. Risk Values: Nely 5 year model risk: 3.5%. NCI Lifetime model risk: 7.4%. Prior Study Comparison: 02/27/2021 Right Diagnostic Mammogram, [facility]. 03/06/2022 Bilateral MG 3D screening mammo w/cad, [facility]. 04/16/2023 Bilateral MG 3D screening mammo w/cad, [facility]. Tissue Density: The breasts are almost entirely fatty. Analyzed By CAD. Overall Assessment: Benign, BI-RAD 2 Management: Screening Mammogram of both breasts in 1 year. Electronically signed and approved by: Albaro Weldon DO
== END | disposition home or self-care (01) ==
LOC: RADMAMWWP 12:30
PROVIDERS: ATTEND Family Medicine
DX: Z12.31 Encounter for screening mammogram for malignant neoplasm of breast (principal); Z78.0 Asymptomatic menopausal state; Z80.3 Family history of malignant neoplasm of breast; R92.313 Mammographic fatty tissue density, bilateral breasts
CPT/HCPCS: 77063; 77067

== ENCOUNTER → 2024-08-23 | Outpatient (CLI) | payer MEDICARE ==
[2024-08-23 15:10] VITALS: BP 123/71; PULSE 76; RESP 16; TEMP 97.7
--- NOTE | 2024-08-23 16:04 | P.SLEEP ---
History of Present Illness H&P Date: 08/23/24 This is a 74-year-old female patient who was referred to me for evaluation of insomnia. The patient is currently retired. 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 Currently she is living in [place]. She lives alone. Her sleep schedule is quite dysregulated. For now, she falls asleep late as late as 5:30 AM in the morning. He tried to go to bed at around 1 AM. She was wake up between 9:30 AM and 12:30 PM depending on the time when she falls asleep. As such, there has been significant irregularities in her sleep schedule. During the day, sometimes she takes naps whenever she feels exhausted. No snoring. No choking or gasping. No grinding. No restlessness in lower extremities. No nighttime or sleep related heartburn chest pain or shortness of breath. No anxiety. No active depression. She has previous history of depression maintained on Lexapro. She has chronic back pain for which she takes Flexeril. No head trauma. No substance abuse. No alcoholism. No active surgical excision of Labial beverages.. Her current [place] score is at 7. He sleeps on her side. No sleep paralysis. No hallucinations. No cataplexy. No stroke. No history of any cardiovascular complications such as congestion heart failure, atrial fibrillation or coronary artery disease. She is known to have chronic stage III kidney disease, chronic back pain, acid reflux and hypertension. Review of Systems Full review of system was done and the positive findings are mentioned above history of present illness Past Medical History Past Medical History: GERD/Reflux, Hypertension, Renal Disease Additional Past Medical History / Comment(s): bowel perferation. History of Any Multi-Drug Resistant Organisms: None Reported Past Surgical History: Back Surgery, Cholecystectomy Past Anesthesia/Blood Transfusion Reactions: No Reported Reaction Past Psychological History: No Psychological Hx Reported Smoking Status: Never smoker Past Alcohol Use History: None Reported Past Drug Use History: None Reported - Past Family History Father Family Medical History: Coronary Artery Disease (CAD), CVA/TIA, Osteoarthritis (OA) Additional Family Medical History / Comment(s): sinus headaches, snoring Mother Family Medical History: Cancer Additional Family Medical History / Comment(s): breast cancer Brother(s) Family Medical History: GERD/Reflux Additional Family Medical History / Comment(s): snoring, mental illness, sinus headaches Sister(s) Family Medical History: GERD/Reflux Additional Family Medical History / Comment(s): sinus headaches Medications and Allergies Home Medications Medication Instructions Recorded Confirmed Type Cholecalciferol (Vitamin D3) 2,000 unit PO DAILY 10/11/18 10/11/18 History [Vitamin D3] Cyanocobalamin (Vitamin B-12) 1,000 mcg PO DAILY 10/11/18 10/11/18 History [Vitamin B-12] Cyclobenzaprine [Flexeril] 10 mg PO TID PRN 10/11/18 08/23/24 History Escitalopram [Lexapro] 20 mg PO DAILY 10/11/18 08/23/24 History Lansoprazole [Prevacid] 15 mg PO DAILY 10/11/18 08/23/24 History Nebivolol HCl 2.5 mg PO DAILY 08/23/24 08/23/24 History Allergies Allergy/AdvReac Type Severity Reaction Status Date / Time morphine Allergy Unknown Verified 10/11/18 08:33 Physical Exam Vitals: Vital Signs Temp Pulse Resp BP Pulse Ox 08/23/24 15:09 97.7 F 76 16 123/71 96 Intake and Output 08/23/24 08/23/24 08/23/24 06:59 14:59 22:59 Other: Weight 87.543 kg The patient appeared well nourished and normally developed. Vital signs as documented. Head exam is unremarkable. No scleral icterus or corneal arcus noted. Neck is without jugular venous distension, thyromegaly, or carotid bruits. Carotid upstrokes are brisk bilaterally. Lungs are clear to auscultation and percussion. Cardiac exam reveals the PMI to be normally sized and situated. Rhythm is regular. First and second heart sounds normal. No murmurs, rubs or gallops. Abdominal exam reveals normal bowel sounds, no masses, no organomegaly and no aortic enlargement. Extremities are nonedematous and both femoral and pedal pulses are normal. Examination of the skin revealed no evidence of significant rashes, suspicious appearing nevi or other concerning lesions. Neurologically, the patient is awake and alert and the patient does not have any focal neurological deficit. Cranial nerves are essentially intact. Assessment and Plan Plan: Delayed sleep phase syndrome. The patient does not have insomnia. She has a sleep cycle disorder characterized by inability to fall asleep and wake up at desired times. He is falling asleep very after midnight and she has difficulties waking up in the morning and she feels tired and groggy during the day. He has daytime sleepiness. Chronic stage III kidney disease Chronic back pain maintained on Flexeril Acid reflux Hypertension History of the depression maintained on Lexapro Plan The treatment for delayed sleep phase syndrome is potentially lifestyle changes. I do not see the need for medication at this point in time. I had a lengthy discussion with her. We tried to establish a regular sleep-wake schedule and stick to it is much as possible. He was asked to wake up at a regular time in the morning and exposed to bright light in the morning and this will help regulate her circadian rhythm. She is going to try to avoid caffeinated beverages or alcohol before bedtime. We established a goal where she is going to wake up 1 hour earlier every week till she is able to establish a sleep schedule between 11 PM and 7 AM in the morning. No need for drug therapy at this point. No need for sleep study. She will update me on her condition in few months time. Sleep Note - Sleep Data ESS Total: 7 - Sleep Note Sleep Note: Temperature: 97.7 F Pulse Rate: 76 Respiratory Rate: 16 Blood Pressure: 123/71 SpO2: 96 Height: 4 ft 11 in Weight: 87.543 kg BMI: Neck Circumference: 15.5
== END ==
LOC: 3 N SLEEP 13:49
PROVIDERS: ATTEND Internal Medicine Critical Care Medicine
DX: G47.21 Circadian rhythm sleep disorder, delayed sleep phase type (principal); R40.0 Somnolence; N18.30 Chronic kidney disease, stage 3 unspecified; K21.9 Gastro-esophageal reflux disease without esophagitis; M54.50 Low back pain, unspecified; G89.29 Other chronic pain; I10 Essential (primary) hypertension; Z86.59 Personal history of other mental and behavioral disorders; Z88.5 Allergy status to narcotic agent; Z87.891 Personal history of nicotine dependence
CPT/HCPCS: 99211

== ENCOUNTER → 2025-01-05 | Outpatient (CLI) | payer MEDICARE ==
--- NOTE | 2025-01-05 16:31 | CT ---
EXAMINATION TYPE: CT abdomen pelvis wo con DATE OF EXAM: 01/05/2025 COMPARISON: CT chest, abdomen and pelvis dated 10/11/2018 CLINICAL INDICATION: Female, 74 years old with history of R10.84 GENERALIZED ABD PAIN; PHH, Generaliz ed abdominal pain, history of poor renal function and "possible perc" TECHNIQUE: CT scan of the abdomen and pelvis is performed without oral or IV contrast. CT DLP: 649.[address] CTDI: mGy Automated exposure control for dose reduction was used. FINDINGS: Within the limitations of a non-contrast study, the following observations are made. The lungs are clear. There is a small hiatal hernia. There is surgical absence of gallbladder. There is no biliary ductal dilatation. There is no organomegaly of the liver, pancreas, spleen or adrenal glands. There are no renal calcifications or hydronephrosis. There is a large 7.8 cm exophytic simple cyst of the lower pole left kidney. The caliber of the abdominal aorta is normal and there is no retroperitoneal adenopathy or hemorrhage . The bowel loops are normal in caliber is no evidence of obstruction. No inflammatory changes are iden tified in the mesentery and there is no free intraperitoneal air or fluid. There are postsurgical kala nges of the right hemicolectomy. There is no pelvic mass, free fluid, abscess or adenopathy. There is moderate to marked diverticulosi s of the colon without CT evidence of diverticulitis. 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 There are no focal destructive osseous lesions. IMPRESSION: 1. Postoperative changes of right hemicolectomy. 2. Moderate to marked diverticulosis of the sigmoid colon without evidence of acute diverticulitis. 3. large exophytic cyst lower pole left kidney. 4. Small hiatal hernia. [facility], , 01/05/2025 4:29 PM
--- NOTE | 2025-01-05 16:37 | XR ---
EXAMINATION TYPE: XR elbow complete RT DATE OF EXAM: 01/05/2025 4:25 PM COMPARISON: None CLINICAL INDICATION: Female, 74 years old with history of M25.521 PAIN IN RIGHT Elbow; PHH, pain TECHNIQUE: XR elbow complete RT; elbow was examined in AP, lateral, and oblique projections. FINDINGS: No evidence of any acute osseous pathology, joint dislocation, or soft tissue swelling is n oted. No evidence of joint effusion is present. Degeneration changes of the joints of the elbow. No evidence of fracture. IMPRESSION: No evidence of acute fracture. Mild degeneration changes of the joints [facility], , 01/05/2025 4:35 PM
== END | disposition home or self-care (01) ==
LOC: RADCTMAIN 14:30
PROVIDERS: ATTEND Family Medicine
DX: R10.84 Generalized abdominal pain (principal); K44.9 Diaphragmatic hernia without obstruction or gangrene; M19.221 Secondary osteoarthritis, right elbow; K57.30 Diverticulosis of large intestine without perforation or abscess without bleeding; Z90.49 Acquired absence of other specified parts of digestive tract
CPT/HCPCS: 74176